=== PATIENT | male | born 1970 | race Caucasian/White ===

== ENCOUNTER 2019-05-22 19:57 | Inpatient (IN) | payer MEDICAID ==
[~2019-05-22] VITALS: Ht 177.8 cm; Wt 84.4 kg
[2019-05-22] MEDS ORDERED: ONDANSETRON 2MG/ML, 2ML IVPush ONE (20:30)
[2019-05-22] MEDS ORDERED: AMPICILLIN/SULBACTAM 3 GM in SODIUM CHLORIDE 0.9% 100 ML IV ONE (20:30)
[2019-05-22] MEDS ORDERED: SODIUM CHLORIDE 0.9% 1,000ML IVBOLUS ONE (20:30)
[2019-05-22] MEDS ORDERED: MORPHINE SULFATE 4 MG/ML, 1ML IVPush ONE (20:30)
[2019-05-22] MEDS ORDERED: VANCOMYCIN PER PHARMACY MC ONE (20:30)
[2019-05-22] MEDS ORDERED: DIPH,PERTUSS(ACELL),TET VAC/PF 0.5 ML IM-VACC ONE ×2 (20:30→20:41)
[2019-05-22] MEDS ORDERED: MORPHINE SULFATE 4 MG/ML, 1ML ONE (20:41)
[2019-05-22] MEDS ORDERED: ONDANSETRON 2MG/ML, 2ML ONE (20:41)
[2019-05-22] MEDS ORDERED: LORazepam 2 MG/ML, 1ML ONE (20:58)
[2019-05-22] MEDS ORDERED: LORazepam 2 MG/ML, 1ML IVPush ONE (21:00)
[2019-05-22] MEDS ORDERED: VANCOMYCIN 1,600 MG in SODIUM CHLORIDE 0.9% 250 ML IV ONE (21:00)
--- NOTE | 2019-05-22 21:20 | NUR ---
ASSIST RN: PT STATES HE'S SUPPOSED TO TAKE METFORMIN AND A BP MED, BUT HE CURRENTLY DOESN'T TAKE ANY HOME MEDS.
[2019-05-22 21:21] LABS: BASOPHILS # (AUTO) 0.08 x10^3/uL (0-0.1); BASOPHILS % (AUTO) 1 % (0-1); EOSINOPHILS # (AUTO) 0.05 x10^3/uL (0-0.4); EOSINOPHILS % (AUTO) 0 % (1-7); LYMPHOCYTES # (AUTO) 1.23 x10^3/uL (1-3.4); LYMPHOCYTES % (AUTO) 11 % (22-44); MD NO; MEAN CORPUSCULAR HEMOGLOBIN 28.2 pg (27.5-34.5); MEAN CORPUSCULAR VOLUME 85.4 fL (81-97); MEAN PLATELET VOLUME 8.5 fL (7.4-10.4); MONOCYTES # (AUTO) 1.02 x10^3/uL (0.2-0.8); MONOCYTES % (AUTO) 9 % (2-9); NEUTROPHILS # (AUTO) 8.61 x10^3/uL (1.8-6.8); NEUTROPHILS % (AUTO) 78 % (42-75); PLATELET COUNT 273 x10^3/uL (130-400); RED CELL DISTRIBUTION WIDTH 13.5 % (9.4-14.8)
[2019-05-22 21:30] LABS: ANION GAP 6 mmol/L (5-15); CHLORIDE 107 mmol/L (98-107); CREATININE 1.09 mg/dL (0.7-1.3)
--- NOTE | 2019-05-22 21:37 | NUR ---
ERP WAS IN TO SEE PT AND RV'WD POC WITH HIM.
--- NOTE | 2019-05-22 21:45 | NUR ---
ASSIST RN: OKAY FOR PT TO EAT PER ERP. SANDWICH & WATER PROVIDED.
[2019-05-22] MEDS ORDERED: LIDOCAINE-MPF 1%, 5ML ONE (21:47)
--- NOTE | 2019-05-22 21:56 | NUR ---
PT EATING. I&D SET UP AT BEDSIDE. CALL LIGHT IN REACH, ERP AWARE.
[2019-05-22] MEDS ORDERED: LIDOCAINE 1%, 2ML INFIL ONE (22:00)
[2019-05-22 22:27] LABS: AMPHETAMINE SCREEN, URINE Positive (Negative); BARBITURATE SCREEN, URINE Negative (Negative); BENZODIAZEPINE SCREEN, URINE Negative (Negative); CANNABINOID SCREEN, URINE Negative (Negative); COCAINE SCREEN, URINE Negative (Negative); METHADONE SCREEN, URINE Negative (Negative); OPIATE SCREEN, URINE Positive (Negative)
--- NOTE | 2019-05-22 22:43 | NUR ---
PT WOUND DRESSED WITH NON-STICK GAUZE, KERLIX, AND COBAN. PT TOLERATED WELL. DENIES ANY FURTHER NEEDS OR CONCERNS AT THIS TIME.
[2019-05-22] MEDS ORDERED: LISI2.5T PO (23:10)
[2019-05-22] MEDS ORDERED: METF500T17 PO (23:10)
--- NOTE | 2019-05-22 23:24 | NUR ---
REPORT CALLED TO YAMILET MCMAHON. PT MED REQ UPDATED. PT DENIES ANY CURRENT NEEDS OR CONCERNS, AWAITING TRANSPORT AT THIS TIME.
[2019-05-23 00:04] VITALS: BP 167/94
[2019-05-23] MEDS ORDERED: LIDODERM 5% PATCH TD PRN (00:30)
[2019-05-23] MEDS ORDERED: VANCOMYCIN PER PHARMACY MC PRN (00:30)
[2019-05-23] MEDS ORDERED: DOCUSATE 100 MG CAPSULE PO PRN (00:30)
[2019-05-23] MEDS ORDERED: TEMAZEPAM 15 MG CAPSULE PO PRN (00:30)
[2019-05-23] MEDS ORDERED: LABETALOL 20 MG/4 ML IVPush PRN (00:30)
[2019-05-23] MEDS ORDERED: ONDANSETRON 2MG/ML, 2ML IVPush PRN (00:30)
[2019-05-23] MEDS ORDERED: ACETAMINOPHEN 325 MG TABLET PO PRN (00:30)
[2019-05-23] MEDS: AMPICILLIN/SULBACTAM 3 GM in SODIUM CHLORIDE 0.9% 100 ML IV SCH ×3 (04:43→19:57)
[2019-05-23 08:05] LABS: BASOPHILS # (AUTO) 0.03 x10^3/uL (0-0.1); BASOPHILS % (AUTO) 0 % (0-1); EOSINOPHILS % (AUTO) 1 % (1-7); HCT (SEDRATE) 47.8 % (39.2-51.8); LYMPHOCYTES # (AUTO) 1.37 x10^3/uL (1-3.4); LYMPHOCYTES % (AUTO) 13 % (22-44); MD NO; MEAN CORPUSCULAR HEMOGLOBIN 28.2 pg (27.5-34.5); MEAN CORPUSCULAR HGB CONC 33.6 g/dL (33.2-36.2); MEAN CORPUSCULAR VOLUME 83.9 fL (81-97); MEAN PLATELET VOLUME 8.2 fL (7.4-10.4); MONOCYTES # (AUTO) 1.07 x10^3/uL (0.2-0.8); MONOCYTES % (AUTO) 10 % (2-9); NEUTROPHILS # (AUTO) 8.36 x10^3/uL (1.8-6.8); NEUTROPHILS % (AUTO) 76 % (42-75); PLATELET COUNT 271 x10^3/uL (130-400); RED BLOOD COUNT 5.42 x10^6/uL (4.38-5.82); RED CELL DISTRIBUTION WIDTH 13.8 % (9.4-14.8)
[2019-05-23 08:12] VITALS: BP 186/100
[2019-05-23 08:17] LABS: ANION GAP 4 mmol/L (5-15); CALCIUM 7.9 mg/dL (8.5-10.1); CHLORIDE 111 mmol/L (98-107); CREATININE 0.82 mg/dL (0.7-1.3)
[2019-05-23] MEDS ORDERED: LISINOPRIL 10 MG TABLET PO SCH (09:00)
[2019-05-23] MEDS: metFORMIN 500 MG TABLET PO SCH ×2 (09:35→19:58)
[2019-05-23] MEDS: LISINOPRIL 20 MG TABLET PO SCH (09:35)
[2019-05-23 12:23] VITALS: BP 154/80
[2019-05-23] MEDS: VANCOMYCIN 1,600 MG in SODIUM CHLORIDE 0.9% 250 ML IV SCH (12:50)
[2019-05-23 20:49] VITALS: BP 153/78
[2019-05-24 02:04] VITALS: BP 158/95
[2019-05-24] MEDS: AMPICILLIN/SULBACTAM 3 GM in SODIUM CHLORIDE 0.9% 100 ML IV SCH ×3 (04:04→20:22)
[2019-05-24] MEDS: VANCOMYCIN 1,600 MG in SODIUM CHLORIDE 0.9% 250 ML IV SCH (06:06)
[2019-05-24 06:07] LABS: ANION GAP 5 mmol/L (5-15); CALCIUM 8.3 mg/dL (8.5-10.1); CHLORIDE 110 mmol/L (98-107); CREATININE 0.87 mg/dL (0.7-1.3)
[2019-05-24 06:12] LABS: BASOPHILS # (AUTO) 0.04 x10^3/uL (0-0.1); BASOPHILS % (AUTO) 0 % (0-1); EOSINOPHILS % (AUTO) 1 % (1-7); LYMPHOCYTES # (AUTO) 1.82 x10^3/uL (1-3.4); LYMPHOCYTES % (AUTO) 19 % (22-44); MD NO; MEAN CORPUSCULAR HEMOGLOBIN 28.4 pg (27.5-34.5); MEAN CORPUSCULAR HGB CONC 33.6 g/dL (33.2-36.2); MEAN CORPUSCULAR VOLUME 84.4 fL (81-97); MEAN PLATELET VOLUME 8.3 fL (7.4-10.4); MONOCYTES # (AUTO) 0.87 x10^3/uL (0.2-0.8); MONOCYTES % (AUTO) 9 % (2-9); NEUTROPHILS # (AUTO) 6.68 x10^3/uL (1.8-6.8); NEUTROPHILS % (AUTO) 70 % (42-75); PLATELET COUNT 255 x10^3/uL (130-400); RED BLOOD COUNT 5.32 x10^6/uL (4.38-5.82); RED CELL DISTRIBUTION WIDTH 13.9 % (9.4-14.8)
[2019-05-24 08:12] VITALS: BP 147/73
[2019-05-24] MEDS: LISINOPRIL 20 MG TABLET PO SCH (09:36)
[2019-05-24] MEDS: metFORMIN 500 MG TABLET PO SCH ×2 (09:36→20:22)
[2019-05-24] MEDS ORDERED: PHARMACOKINETIC MONITORING MC PRN (11:00)
[2019-05-24 17:08] VITALS: BP 153/84
[2019-05-24 20:00] VITALS: BP 167/91
[2019-05-25] MEDS: VANCOMYCIN 1,600 MG in SODIUM CHLORIDE 0.9% 250 ML IV SCH (00:01)
[2019-05-25 02:52] VITALS: BP 159/98
[2019-05-25] MEDS: AMPICILLIN/SULBACTAM 3 GM in SODIUM CHLORIDE 0.9% 100 ML IV SCH ×2 (04:21→13:02)
[2019-05-25 09:00] VITALS: BP 157/95
[2019-05-25] MEDS: metFORMIN 500 MG TABLET PO SCH (09:16)
[2019-05-25] MEDS: LISINOPRIL 20 MG TABLET PO SCH (09:16)
[2019-05-25 14:20] VITALS: BP 145/85
[2019-05-25] MEDS ORDERED: LISI-170 PO (14:58)
[2019-05-25] MEDS ORDERED: ACET325T26 PO (14:58)
[2019-05-25] MEDS ORDERED: METF500T PO (14:58)
[2019-05-25] MEDS ORDERED: LINE600T12 PO (14:58)
[2019-05-25] MEDS ORDERED: metFORMIN 500 MG TABLET PO SCH (17:00)
== END 2019-05-25 18:46 | disposition home or self-care (01) | DRG 872 ==
LOC: ED 22:10 → EDIP 22:49 → 3N 23:41
PROVIDERS: ADMIT Internal Medicine; ATTEND Internal Medicine
PROC: 0X9K0ZZ Drainage of Left Hand, Open Approach (ICD-10-PCS; principal; 2019-05-22)
DX: A41.9 Sepsis, unspecified organism (principal); L03.114 Cellulitis of left upper limb; F15.20 Other stimulant dependence, uncomplicated; L02.414 Cutaneous abscess of left upper limb; E11.9 Type 2 diabetes mellitus without complications; F41.1 Generalized anxiety disorder; I10 Essential (primary) hypertension; L03.012 Cellulitis of left finger; Z83.3 Family history of diabetes mellitus
CPT/HCPCS: 36415; 80048; 80307; 83036; 83605; 84145; 85025; 85651; 86140; 87040; 87070; 87077; 87186; 87205; 90715; G0378; J0295; J2405; J3370; J2060; J2270; J7030; J7050